=== PATIENT | male | born 1990 | race Caucasian/White ===

== ENCOUNTER 2016-05-21 19:49 | Emergency (ER) | payer SELFPAY ==
[~2016-05-21] VITALS: Ht 190.5 cm; Wt 123.0 kg
[~2016-05-21 19:49] MED LIST: PENI250S2 PO; PENI500T PO
[2016-05-21 19:51] VITALS: BP 155/95; PULSE 67; RESP 15; TEMP 98.8; O2SAT 98
--- NOTE | 2016-05-21 20:18 | PD ---
Physical Exam Date Seen by Provider: May 21, 2016 Time Seen by Provider: 20:17 Narrative 25 year old male presents to the emergency department for evaluation of left sided toothache, pain 07/24, that started today. Patient awaiting bed placement. Data Data Last Documented VS Vital Signs Date Time Temp Pulse Resp B/P Pulse Ox O2 Delivery O2 Flow Rate FiO2 05/21/16 19:51 98.8 67 15 155/95 98 Room Air [facility] Supervised Visit with REGINA: Peggy Hennessy May 21, 2016 20:18
[2016-05-21] MEDS ORDERED: MAGICADU2 SWISH-SPIT (21:44)
[2016-05-21] MEDS ORDERED: IBUP800T23 PO (21:44)
[2016-05-21] MEDS ORDERED: PENI500T PO (21:44)
--- NOTE | 2016-05-21 21:46 | PD ---
HPI Chief Complaint: Oral / Dental Pain or Problem Time Seen by Provider: 21:37 Travel History International Travel<30 days: No Contact w/Intl Traveler<30days: No Traveled to known affect area: No History of Present Illness HPI 25-year-old male presents for evaluation of dental pain. Symptom onset today. Pain is a throbbing pain localized to left maxillary third molar, constant, worse when chewing. He has had problems with this tooth in the past. Denies any dental trauma. Symptoms seemed to have started after drinking michelle gee. He has no other complaints. PFSH Past Medical History Cancer: No Diabetes: No Psychiatric: No Seizures: No Thyroid Disease: No Ulcer: No Social History Alcohol Use: No Tobacco Use: No Substance Use: No Allergies-Medications (Allergen,Severity, Reaction): Coded Allergies: Neomycin (Verified Allergy, Severe, 05/21/16) Reported Meds & Prescriptions Reported Meds & Active Scripts Active Magic Mouthwash Adult Liq (Multi-Ingredient Mouthwash/Gargle) 120 Ml Susp 10 Ml SWISH-SPIT ACHS Each 5mL contains: Nystatin 200,000units, Diphenhydramine 4.25mg, Viscous Lidocaine 10mg, Soler syrup 0.8 mL Ibuprofen 800 Mg Tab 800 Mg PO Q6HR PRN Penicillin V Potassium 500 Mg Tab 500 Mg PO Q8H 10 Days Pen Vk (Penicillin V Potassium) 500 Mg Tab 500 Mg PO Q6 7 Days Reported Penicillin V Potassium 250 Mg/5 Ml Farhana 250 Mg PO TID Review of Systems General / Constitutional: No: Fever HENT: Positive: Dental Difficulties, No: Gingival Bleeding Physical Exam Narrative GENERAL: Well-developed well-nourished male in no acute distress SKIN: Warm and dry. HEAD: Atraumatic. Normocephalic. EYES: Pupils equal and round. No scleral icterus. No injection or drainage. ENT: No nasal bleeding or discharge. Mucous membranes pink and moist. Left maxillary third molar somewhat decayed and tender to palpation. No gingival edema, no facial edema NECK: Trachea midline. No JVD. Data Data Last Documented VS Vital Signs Date Time Temp Pulse Resp B/P Pulse Ox O2 Delivery O2 Flow Rate FiO2 05/21/16 19:51 98.8 67 15 155/95 98 Room Air MDM Medical Decision Making Medical Screen Exam Complete: Yes Emergency Medical Condition: Yes Medical Record Reviewed: Yes Differential Diagnosis Dental caries, pulpitis, pericoronitis, periodontal abscess, impacted molar Narrative Course 25-year-old male presents with one-day history of dental pain. He'll be discharged with ibuprofen, penicillin, aspirin wash, advised outpatient follow- up with a dentist. Diagnosis Primary Impression: Dental caries Additional Instructions: Medication as prescribed. Follow-up with dentist for definitive therapy. Return for any emergent medical conditions. Med/Other Pt SpecificInfo: Prescription(s) given Scripts Tutlvetf-Gishjwylrsevfxw-Ytkmixbuo Liq (Magic Mouthwash Adult Liq)120 Ml Susp10 Ml SWISH-SPIT ACHS #120 ML Ref 1 Each 5mL contains: Nystatin 200,000units, Diphenhydramine 4.25mg, Viscous Lidocaine 10mg, Soler syrup 0.8 mL Prov:Main Caballero MD 05/21/16 Ibuprofen 800 Mg [id number] Mg PO Q6HR PRN (PAIN) #40 TAB Ref 0 Prov:Main Caballero MD 05/21/16 Penicillin V Potassium 500 Mg [id number] Mg PO Q8H 10 Days Ref 0 Prov:Main Caballero MD 05/21/16 Disposition: 01 DISCHARGE HOME Condition: Stable Juvencio Jackson May 21, 2016 21:46
== END 2016-05-21 22:02 | disposition home or self-care (01) ==
LOC: NEPK 19:49
DX: K02.9 Dental caries, unspecified (principal)
CPT/HCPCS: 99282

== ENCOUNTER 2016-09-09 08:10 | Emergency (ER) | payer SELFPAY ==
[~2016-09-09] VITALS: Ht 190.5 cm; Wt 125.0 kg
[~2016-09-09 08:10] MED LIST changes: +IBUP800T23 PO; +MAGICADU2 SWISH-SPIT; -PENI250S2 PO
[2016-09-09 08:11] VITALS: BP 161/98; PULSE 57; RESP 16; TEMP 98.4; O2SAT 100
[2016-09-09] MEDS ORDERED: ALEV220T14 PO (08:19)
[2016-09-09] MEDS ORDERED: AMOX500C PO (08:27)
--- NOTE | 2016-09-09 08:28 | PD ---
HPI Chief Complaint: Oral / Dental Pain or Problem Time Seen by Provider: 08:26 Travel History International Travel<30 days: No Contact w/Intl Traveler<30days: No Traveled to known affect area: No History of Present Illness HPI 25-year-old male presents to the emergency Department with complaint of left upper tooth pain 2 weeks. Has history of same complaint. Has not followed up with dentist since seen here May 21. Denies facial edema, fever, vomiting. Has been taking Aleve for symptom management. Pain is worse with eating and drinking. Says to the pain was exacerbated after drinking alcohol. Allergies to neomycin. Has no other medical complaints. No other modifying factors or associated signs and symptoms. PFSH Past Medical History Cancer: No Diabetes: No Diminished Hearing: No Psychiatric: No Immunizations Current: Yes Seizures: No Thyroid Disease: No Ulcer: No Past Surgical History Other Surgery: No Social History Alcohol Use: No Tobacco Use: No Substance Use: No Allergies-Medications (Allergen,Severity, Reaction): Coded Allergies: Neomycin (Verified Allergy, Severe, 05/21/16) Reported Meds & Prescriptions Reported Meds & Active Scripts Active Amoxicillin 500 Mg Cap 500 Mg PO BID 10 Days Reported Aleve Arthritis (Naproxen Sodium) 220 Mg Tab 220 Mg PO DIRECTED Review of Systems Except as stated in HPI: all other systems reviewed are Neg Physical Exam Narrative GENERAL: Well-nourished, well-developed male patient, in no acute distress; afebrile, nontoxic-appearing SKIN: Warm and dry. HEAD: Atraumatic. Normocephalic. No facial edema, erythema, tenderness on palpation. No lymphadenopathy. EYES: Pupils equal and round. No scleral icterus. No injection or drainage. ENT: Mucosa pink and moist. Airway patent. MOUTH: Mucous membranes moist, no lesions, tongue and gums appear normal. Tooth #16 with tenderness on palpation; dental decay noted. Surrounding gingiva is without erythema, edema, drainage. No obvious abscess noted. NECK: Trachea midline. No lymphadenopathy. CARDIOVASCULAR: Regular rate. RESPIRATORY: No accessory muscle use. GASTROINTESTINAL: Rounded. MUSCULOSKELETAL: No obvious deformities. No clubbing. No cyanosis. No edema. NEUROLOGICAL: Awake and alert. Oriented 3. No obvious cranial nerve deficits. Motor grossly within normal limits. Normal speech. PSYCHIATRIC: Appropriate mood and affect; insight and judgment normal. Data Data Last Documented VS Vital Signs Date Time Temp Pulse Resp B/P Pulse Ox O2 Delivery O2 Flow Rate FiO2 09/09/16 08:11 98.4 57 16 161/98 100 Room Air MDM Medical Decision Making Medical Screen Exam Complete: Yes Emergency Medical Condition: Yes Medical Record Reviewed: Yes Differential Diagnosis Dentalgia, dental abscess, infected dental caries, gingivitis Narrative Course 25-year-old male with dentalgia to tooth #16. No facial edema or obvious abscess noted. Patient is afebrile and nontoxic-appearing. Emergency dental information sheet provided. Amoxicillin prescribed for home. Instructed patient to follow up with dentist. Instructed patient to follow up with primary care provider. Patient verbalizes understanding and agreement with treatment plan. Patient is medically cleared and stable for discharge. Discussed reasons to return to the emergency department. Patient agrees with treatment plan. The patients vital signs are stable and the patient is stable for outpatient follow-up and treatment. Patient discharged home, stable and in no acute distress. Diagnosis Primary Impression: Dentalgia Referrals: [facility] Dentist Primary Care Physician Patient Instructions: Dental Abscess (ED), Dental Caries (ED), General Instructions Departure Forms: Tests/Procedures, Work Release Enter return to work date: Sep 09, 2016 Additional Instructions: Complete full course of antibiotics Ibuprofen or Tylenol as directed and as needed to reduce pain and inflammation Warm or cool compresses to the affected area Follow-up with dentist Follow-up with primary care provider Return to emergency department immediately with worsening of symptoms Med/Other Pt SpecificInfo: Prescription(s) given Scripts Amoxicillin 500 Mg [id number] Mg PO BID 10 Days Ref 0 Prov:Kailyn Hutchison 09/09/16 Disposition: 01 DISCHARGE HOME Condition: Stable Kailyn Hutchison Sep 09, 2016 08:28
== END 2016-09-09 08:50 | disposition home or self-care (01) ==
LOC: NEPK 08:10
DX: K08.89 Other specified disorders of teeth and supporting structures (principal); Z79.899 Other long term (current) drug therapy
CPT/HCPCS: 99283